=== PATIENT | female | born 1955 | race Two or more races ===

== ENCOUNTER 2017-05-19 05:49 | Day surgery (SDC) | payer OTHER ==
[2017-05-19] MEDS ORDERED: MIDAZOLAM 1 MG/ML 2 ML INJ (11:22)
[2017-05-19] MEDS ORDERED: LIDOCAINE 1% (MDV) 20 ML INJ (11:24)
[2017-05-19] MEDS ORDERED: PROPOFOL 20 ML (11:24)
[2017-05-19] MEDS ORDERED: ONDANSETRON 4 MG INJ (11:30)
[2017-05-19] MEDS ORDERED: CEFAZOLIN 1 GM INJ (11:30)
[2017-05-19] MEDS ORDERED: DEXAMETHASONE 4 MG/ML 1 ML INJ (11:30)
[2017-05-19] MEDS ORDERED: ACETAMINOPHEN 325 MG TAB PO (12:00)
[2017-05-19] MEDS: HYDROmorphONE (0.2 MG/ML) 10ML SYG IV (12:12)
== END 2017-05-19 13:26 | disposition home or self-care (01) ==
LOC: SDS 05:49
DX: N95.9 Unspecified menopausal and perimenopausal disorder (principal)
CPT/HCPCS: 58558; 84702; 86850; 86900; 86901; 88305

== ENCOUNTER 2017-10-15 07:57 | Day surgery (SDC) | payer OTHER ==
[~2017-10-15 07:57] MED LIST: DEXAMETHASONE 4 MG/ML 1 ML INJ; LIDOCAINE 2% (SDV) 5 ML INJ
[2017-10-15] MEDS ORDERED: CIPROFLOXACIN 400MG/D5W 200 ML IVPB (09:00)
[2017-10-15] MEDS ORDERED: METOCLOPRAMIDE 10 MG INJ IV (11:30)
[2017-10-15] MEDS ORDERED: HYDROmorphONE 1 MG/5 ML IV SYRINGE IV ×2 (11:30)
[2017-10-15] MEDS ORDERED: FENTAnyl 50 MCG/ML VIAL IV ×3 (11:30)
[2017-10-15] MEDS ORDERED: hydrALAzine 20 MG INJ IV (11:30)
[2017-10-15] MEDS ORDERED: LABETALOL HCL 20MG INJ IV (11:30)
[2017-10-15] MEDS ORDERED: EPHEDrine SULFATE 50 MG/5 ML SYG IV (11:30)
[2017-10-15] MEDS ORDERED: KETOROLAC 30 MG INJ IV (11:30)
[2017-10-15] MEDS ORDERED: OXYCODONE/ACETAMINOPHEN (5/325) TAB PO ×2 (11:30)
[2017-10-15] MEDS ORDERED: ALBUTEROL 0.083% (NEB) 2.5 MG/3 ML AMP HHN (11:30)
[2017-10-15] MEDS ORDERED: MEPERIDINE 25 MG INJ IV (11:30)
[2017-10-15] MEDS ORDERED: MIDAZOLAM 1 MG/ML 2 ML INJ IV (11:30)
[2017-10-15] MEDS ORDERED: DIPHENHYDRAMINE 50 MG INJ IV (11:30)
[2017-10-15] MEDS ORDERED: IOHEXOL 300MG/ML 30 ML BTL (11:47)
[2017-10-15] MEDS ORDERED: ONDANSETRON 4 MG INJ (12:10)
[2017-10-15] MEDS ORDERED: DEXAMETHASONE 4 MG/ML 1 ML INJ (12:10)
[2017-10-15] MEDS ORDERED: ROCURONIUM 50 MG INJ (12:17)
[2017-10-15] MEDS ORDERED: PROPOFOL 20 ML (12:17)
[2017-10-15] MEDS ORDERED: SUGAMMADEX SODIUM 200 MG/2 ML VIAL IV (12:17)
[2017-10-15] MEDS: HYDROmorphONE 1 MG/5 ML IV SYRINGE IV (12:37)
[2017-10-15] MEDS: ONDANSETRON 4 MG INJ IV (12:37)
== END 2017-10-15 14:15 | disposition home or self-care (01) ==
LOC: SDS 07:57
DX: N20.1 Calculus of ureter (principal); I10 Essential (primary) hypertension
CPT/HCPCS: 52005; 74420

== ENCOUNTER 2017-11-17 07:23 | Day surgery (SDC) | payer OTHER ==
[2017-11-17] MEDS ORDERED: CEFAZOLIN 1 GM/50 ML (PMX) 50 ML IVPB (08:00)
[2017-11-17] MEDS ORDERED: IOHEXOL 300MG/ML 30 ML BTL (08:50)
[2017-11-17] MEDS: SOD CHLORIDE 0.9% 500 ML (10:15)
[2017-11-17] MEDS: SOD CHLORIDE 0.9% 1,000 ML IV (10:15)
[2017-11-17] MEDS: MIDAZOLAM 1 MG/ML 2 ML INJ (10:18)
[2017-11-17] MEDS: FENTAnyl 50 MCG/ML VIAL ×2 (10:18→11:03)
[2017-11-17] MEDS: LIDOCAINE 1% (MPF) 5 ML VIAL (10:20)
[2017-11-17] MEDS: ONDANSETRON 4 MG INJ (11:06)
[2017-11-17] MEDS: morphine 4 MG/ML VIAL IV (13:23)
[2017-11-17] MEDS: ONDANSETRON 4 MG INJ IV (13:23)
[2017-11-17] MEDS: HYDROCODONE/APAP (5/325) TAB PO (15:35)
== END 2017-11-17 16:00 | disposition home or self-care (01) ==
LOC: SDS 07:23
DX: N13.2 Hydronephrosis with renal and ureteral calculous obstruction (principal)
CPT/HCPCS: 50432; 74480; 76942

== ENCOUNTER 2018-07-09 08:46 | Day surgery (SDC) | payer OTHER ==
[2018-07-09] MEDS ORDERED: LIDOCAINE 4% SOLUTION 50 ML BTL (10:02)
[2018-07-09] MEDS ORDERED: MIDAZOLAM 1 MG/ML 2 ML INJ ×2 (11:50)
[2018-07-09] MEDS ORDERED: FENTAnyl 50 MCG/ML VIAL (11:50)
== END 2018-07-09 11:40 | disposition home or self-care (01) ==
LOC: GIL 08:46
DX: K44.9 Diaphragmatic hernia without obstruction or gangrene (principal); K26.9 Duodenal ulcer, unspecified as acute or chronic, without hemorrhage or perforation
CPT/HCPCS: 43239; 88305